=== PATIENT | female | born 1990 | race Caucasian/White ===

== ENCOUNTER → 2017-07-01 | Outpatient (CLI) | payer BC, OTHER ==
[2017-07-01 14:34] VITALS: BMI 30.4
== END | disposition home or self-care (01) ==
LOC: DBWHC3 13:49
PROVIDERS: ATTEND Obstetrics & Gynecology
DX: O24.419 Gestational diabetes mellitus in pregnancy, unspecified control (principal); Z3A.00 Weeks of gestation of pregnancy not specified
CPT/HCPCS: G0108 ×2

== ENCOUNTER 2017-09-01 07:46 | Inpatient (IN) | payer BC, OTHER ==
[2017-08-28 15:24] VITALS: BMI 27.9
[2017-09-01] MEDS ORDERED: LACTATED RINGERS 1,000 ML IV ONE (07:59)
[2017-09-01] MEDS ORDERED: CITRIC ACID-SODIUM CITRATE 15 ML CUP PO ONE (07:59)
[2017-09-01 08:10] LABS: Glucose,Whole Blood 86 mg/dL (75-99)
[2017-09-01 08:18] LABS: Basophils % (A) 0 %; Eosinophils # (A) 0.1 k/uL (0-0.7); Eosinophils % (A) 1 %; HCT 36.4 % (34.0-46.0); HGB 11.5 gm/dL (11.4-16.0); Hypochromasia Slight; Lymphocytes # (A) 1.5 k/uL (1.0-4.8); Lymphocytes % (A) 16 %; MCH 28.4 pg (25.0-35.0); MCHC 31.6 g/dL (31.0-37.0); MCV 89.9 fL (80.0-100.0); Mean Platelet Volume 9.5; Monocytes # (A) 0.4 k/uL (0-1.0); Monocytes % (A) 4 %; Neutrophils # (A) 7.2 k/uL (1.3-7.7); Neutrophils % (A) 76 %; Platelet Count 166 k/uL (150-450); RBC 4.05 m/uL (3.80-5.40); RDW 14.7 % (11.5-15.5); WBC 9.4 k/uL (3.8-10.6)
[2017-09-01] MEDS: CLINDAMYCIN 900 MG in DEXTROSE 5% IN WATER 50 ML IVPB STA ×4 (09:18→09:20)
--- NOTE | 2017-09-01 09:38 | P.HPOB ---
History of Present Illness H&P Date: 09/01/17 This is a 27-year-old white female 4 para 3003 EDC 09/08/2017 at 39 weeks gestation. Patient has a history of 3 previous sections. In addition, she is requesting permanent tubal sterilization. Fetus is been active throughout the . She denies vaginal bleeding or fluid leakage. Past medical history is significant for asthma, asymptomatic with the . Past surgical history sections in 2009, 2011, 2013. Left neck biopsy of benign pathology 1993, tonsillectomy 1995. Current medications vitamins. ALLERGIES include Bactrim to which reports a rash Ceclor and penicillin, 2 both of which she reports a rash. Family history significant for diabetes, a previous baby with a "hole in the heart", and a history of hypertension. Social history patient is not , father of the baby is involved in the . She denies alcohol tobacco or drug use. history is significant for blood type A positive, rubella status immune. Pap smear, gonorrhea and chlamydia cultures, urine culture, rubella status, hepatitis B surface antigen, HIV testing all negative. One-hour Glucola 147, 3 hour GTT within normal limits. On exam this is a pleasant female, 5 foot and a half inches, 184 pounds, vital signs are stable with admission blood pressure 120/64. Patient is afebrile. The general physical exam is within normal limits. heart rate is consistent with reactive NST. Abdomen is obviously gravid, fundal height 38-39 cm, is vertex to Jv's maneuvers. Extremities reveal no edema. Chest scar in all bush. Impression: 39 week intrauterine , 3 previous sections here for repeat , requesting permanent tubal sterilization. Plan: Prophylactic antibiotics are ordered. We will proceed with repeat low transverse section and tubal ligation. All risks benefits and alternatives of this plan have been thoroughly reviewed, and all patient's questions answered. Review of Systems Negative except as in HPI Past Medical History Past Medical History: No Reported History, Asthma History of Any Multi-Drug Resistant Organisms: None Reported Past Surgical History: Section, Tonsillectomy Additional Past Surgical History / Comment(s): x3 Past Anesthesia/Blood Transfusion Reactions: No Reported Reaction Past Psychological History: No Psychological Hx Reported Smoking Status: Never smoker Past Alcohol Use History: None Reported Past Drug Use History: None Reported - Past Family History Mother Family Medical History: Congestive Heart Failure (CHF), Diabetes Mellitus, Deep Vein Thrombosis (DVT), Hypertension Medications and Allergies Home Medications Medication Instructions Recorded Confirmed Type No Known Home Medications [No 05/25/14 08/28/17 History Known Home Medications] Allergies Allergy/AdvReac Type Severity Reaction Status Date / Time cefaclor [From Ceclor] Allergy Rash/Hives Verified 09/01/17 07:59 Penicillins Allergy Anaphylaxis Verified 09/01/17 07:59 sulfamethoxazole Allergy Rash/Hives Verified 09/01/17 07:59 [From Bactrim] trimethoprim [From Bactrim] Allergy Rash/Hives Verified 09/01/17 07:59 Exam - Vital Signs Vital signs: Vital Signs Temp Pulse Resp BP Pulse Ox 09/01/17 08:01 97.5 F L 92 16 120/64 97 Intake and Output 08/31/17 09/01/17 09/01/17 22:59 06:59 14:59 Other: Weight 83.461 kg Patient Weight 09/02/17 06:59 Weight 83.461 kg See dictation under HPI, please. Results Result Diagrams: 09/01/17 08:05 Assessment and Plan Plan: For repeat low transverse section and tubal ligation. Time with Patient: Less than 30
[2017-09-01] MEDS ORDERED: LACTATED RINGERS 1,000 ML BAG IV ONE (09:41)
[2017-09-01] MEDS ORDERED: PHENYLEPHRINE-0.9% NACL SYG 1 MG/10 ML SYRINGE ONE (09:41)
[2017-09-01] MEDS ORDERED: MORPHINE SULFATE (PF) 0.3 MG/0.3 ML SYR ONE (09:41)
[2017-09-01] MEDS ORDERED: ONDANSETRON 4 MG/2 ML VIAL ONE (09:41)
[2017-09-01] MEDS ORDERED: NALBUPHINE 10 MG/ML AMPUL ONE (09:41)
[2017-09-01] MEDS ORDERED: OXYTOCIN 10 UNIT/ML 1 ML VIAL ONE (09:41)
[2017-09-01] MEDS ORDERED: MORPHINE SULFATE 2 MG/ML SYRINGE IVP PRN (10:07)
[2017-09-01] MEDS ORDERED: diphenhydrAMINE 50 MG/ML 1 ML VIAL IVP PRN ×2 (10:07→10:57)
[2017-09-01] MEDS ORDERED: ONDANSETRON 4 MG/2 ML VIAL IVP PRN (10:07)
[2017-09-01] MEDS ORDERED: NALOXONE 0.4 MG/ML 1 ML VIAL IV PRN (10:07)
[2017-09-01] MEDS ORDERED: Acetaminophen-Codeine 300-30mg TAB PO PRN (10:57)
[2017-09-01] MEDS ORDERED: SIMETHICONE 80 MG CHEWABLE PO PRN (10:57)
[2017-09-01] MEDS ORDERED: METOCLOPRAMIDE 5 MG/ML 2 ML VIAL IVP PRN (10:57)
[2017-09-01] MEDS ORDERED: ZOLPIDEM 5 MG TAB PO PRN (10:57)
--- NOTE | 2017-09-01 10:57 | P.OP ---
Date of Procedure: 09/01/17 Preoperative Diagnosis: 3 previous C/S, undesired fertility, 39 wks Postoperative Diagnosis: Liveborn female Procedure(s) Performed: Repeat C/S, with TL Anesthesia: spinal Surgeon: Mary Mayes Baby Formula Worker #1: Sammie Wheatley Estimated Blood Loss (ml): 500 IV fluids (ml): 1,000 Urine output (ml): 100 Pathology: other (placenta) Condition: stable Disposition: PACU Operative Findings: see above Description of Procedure: Is brought to the operating suite. Spinal is placed without difficulty. Patient is positioned in the dorsal supine position with left lateral uterine displacement. Abdullahi catheter placed to direct drainage. The appropriate timeout was performed. The abdomen is prepped and draped in The usual sterile fashion. The analgesia is checked and noted to be adequate. A repeat low transverse skin incision is made in this is carried down through the subcutaneous tissue to the fascia. Fascia is isolated, scored, and extended bilaterally with curved Garcia scissors. Peritoneum is next identified and incised, there is no bowel or bladder involvement. The bladder blade is placed over the dome of the bladder and at all times the bladder is Well from the operative field to avoid bladder and/or ureteral injury. A low transverse uterine incision is made in this is carried down through the myometrium which is quite attenuated and thin. Artificial amniorrhexis reveals clear fluid. The uterine incision is extended with blunt dissection. The infant's head is delivered occiput anterior. There is no nuchal cord noted. The oropharynx, nasopharynx, and external nares are all bulb suctioned on the abdomen. The patient is officially delivered of a liveborn female infant at 1003 hrs. The umbilical cord is doubly clamped and ligated, she is handed to waiting nurses for evaluation where scores of 9 and 9 at one and 5 minutes respectively are given. weight 3590 g, or 7 lbs. 15 oz. The placenta is delivered manually, it is inspected and noted to be intact with trivascular cord at 1003. Uterus is Massaged and swept clean with a sterile sponge to avoid any retained products of conception. It is externalized. Oxytocin is given. The uterus is closed in a single full-thickness stitch of 0 Vicryl, in a running locking manner. Excellent hemostasis is noted. Patient's decision is confirmed to proceed with tubal ligation. Filshie clips are used in the isthmic portion of the tubes bilaterally, with care to traverse the entire diameter of the tubes into the mesal salpinx. Bilateral ovaries are inspected and noted to be normal. Abdomen is suctioned with suction on guard. Uterus is gently placed back into the abdominal cavity. Bilateral gutters are inspected and cleaned. Peritoneum is allowed to close by secondary intention. Fascia is closed in a running stitch of 0 Vicryl with over ligation in the midline. Subcutaneous tissue is irrigated, noted to be clean and dry. It is reapproximated with 3-0 Vicryl in a running stitch. 4-0 undyed Monocryl issues for final skin closure subcuticularly. Steri-Strips and Mastisol are applied to the wound. Uterus is massaged for a small amount of blood. Abdullahi is noted to be draining clear urine. Total estimated blood loss 500 mL, fluid replacement 1000 mL, urine output 100 mL's. All sponge needle and enhancement counts are correct at the end of the procedure. Patient is brought back to the recovery room in very good condition with stable vital signs including blood pressure 105/50, pulse 84.
[2017-09-01] MEDS: LACTATED RINGERS 1,000 ML IV SCH ×2 (13:08→22:37)
[2017-09-01 16:10] LABS: Hemoglobin A1C 5.6 % (4.0-6.0)
[2017-09-01] MEDS: IBUPROFEN 600 MG TAB PO PRN (20:44)
[2017-09-02] MEDS: LACTATED RINGERS 1,000 ML IV SCH (05:57)
[2017-09-02 07:16] LABS: Basophils % (A) 0 %; Eosinophils % (A) 0 %; HCT 32.3 % (34.0-46.0); HGB 10.2 gm/dL (11.4-16.0); Hypochromasia Slight; Lymphocytes # (A) 1.7 k/uL (1.0-4.8); Lymphocytes % (A) 22 %; MCH 28.3 pg (25.0-35.0); MCHC 31.7 g/dL (31.0-37.0); MCV 89.4 fL (80.0-100.0); Mean Platelet Volume 9.2; Monocytes # (A) 0.4 k/uL (0-1.0); Monocytes % (A) 5 %; Neutrophils # (A) 5.7 k/uL (1.3-7.7); Neutrophils % (A) 71 %; Platelet Count 164 k/uL (150-450); RBC 3.61 m/uL (3.80-5.40); RDW 14.8 % (11.5-15.5)
--- NOTE | 2017-09-02 07:58 | P.PN ---
Subjective Progress Note Date: 09/02/17 Principal diagnosis: Postoperative day #1 Objective - Vital Signs Vital signs: Vital Signs Temp 98.6 F 09/02/17 04:00 Pulse 80 09/02/17 04:00 Resp 16 09/02/17 05:00 BP 99/60 09/02/17 04:00 Pulse Ox 97 09/02/17 04:00 Intake & Output 09/01/17 09/02/17 09/02/17 18:59 06:59 18:59 Output Total 400 900 Balance -400 -900 Weight 83.461 kg Output: Urine 400 900 Uretheral (Abdullahi) 400 Other: # Voids 1 - Constitutional General appearance: Present: average body habitus, cooperative - EENT Eyes: Present: poor dentition ENT: Present: hearing grossly normal - Neck Neck: Present: normal ROM Thyroid: bilateral: normal size - Respiratory Respiratory: bilateral: CTA - Cardiovascular Rhythm: regular - Gastrointestinal Gastrointestinal Comment(s): Incision clean and dry, intact, Steri-Strips applied. General gastrointestinal: Present: normal bowel sounds - Integumentary Integumentary: Present: normal - Neurologic Neurologic: Present: CNII-XII intact - Musculoskeletal Musculoskeletal: Present: gait normal, strength equal bilaterally - Psychiatric Psychiatric: Present: A&O x's 3, appropriate affect, intact judgment & insight - Labs CBC & Chem 7: 09/02/17 06:50 Labs: Abnormal Lab Results - Last 24 Hours (Table) 09/02/17 Range/Units 06:50 RBC 3.61 L (3.80-5.40) m/uL Hgb 10.2 L (11.4-16.0) gm/dL Hct 32.3 L (34.0-46.0) % Assessment and Plan Plan: Advance diet and activity. Likely discharge home tomorrow Time with Patient: Less than 30
--- NOTE | 2017-09-02 08:20 | P.PN ---
Progress Note - Text Date:09/02 Time:720 Patient is status post . Patient seen this morning with VAS score of 4. c/o of pruritus, c/o nausea/vomiting, comfortable and doing well today.
[2017-09-02] MEDS: IBUPROFEN 600 MG TAB PO PRN (17:14)
[2017-09-02] MEDS: SENNOSIDES-DOCUSATE SODIUM 1 EACH TAB PO SCH (20:30)
[2017-09-02] MEDS ORDERED: SENNOSIDES 8.6 MG TAB PO SCH (21:00)
[2017-09-03] MEDS: IBUPROFEN 600 MG TAB PO PRN (01:10)
--- NOTE | 2017-09-03 07:01 | P.DS ---
Providers Date of admission: 09/01/17 07:46 Expected date of discharge: 09/03/17 Attending physician: Mary Mayes Primary care physician: Stated None Hospital Course: This is a 27-year-old white female 4 para 3003 EDC 09/08/2017 at 39 weeks gestation. Patient has a history of 3 previous sections, is requesting and tubal ligation for permanent sterilization. Her is remarkable for gestational diabetes. Please see my admitting history and physical for details. Patient underwent a repeat low transverse section with tubal ligation and gave to a liveborn female infant with scores of 9 and 9 at one and 5 minutes respectively. weighed 7 lbs. 15 oz. or 3590 g. Surgery was unremarkable, Filshie clips were used on the tubes. Please see my dictated operative note for details. This morning the patient is doing well. She is voiding, ambulating, passing flatus without difficulty. Vital signs are stable and she is afebrile. Incision is clean and dry, intact with Steri-Strips applied. Extremities are negative for edema. Chest is clear in all bush. Zearing is doing well. Patient is judged to be in good condition for discharge home today. She is being discharged home with instructions to follow-up with me in the office in 2 weeks. I have reminded her no intercourse, tampons or douching. She will use [id number] ibuprofen products as needed for pain, 200 mg pills, 3 every 6 hours as needed. I've asked her to call me with any redness or drainage of the incision, with any pain not alleviated by ibuprofen, with any issues with breasts extremities or indeed with any concerns. will follow-up in the office with coal pulverizer operator as recommended. No driving Patient Condition at Discharge: Good Plan - Discharge Summary Discharge Rx Participant: Yes New Discharge Prescriptions: No Action No Known Home Medications [No Known Home Medications] Discharge Medication List No Known Home Medications [No Known Home Medications] 05/25/14 [History] Follow up Appointment(s)/Referral(s): Mary Mayes MD [STAFF PHYSICIAN] - 2 Weeks Discharge Disposition: HOME SELF-CARE
[2017-09-03] MEDS: SENNOSIDES-DOCUSATE SODIUM 1 EACH TAB PO SCH (08:40)
[2017-09-03 09:24] VITALS: BP 127/64; PULSE 94; RESP 20; TEMP 98.1
== END 2017-09-03 14:10 | disposition home or self-care (01) | DRG 766 ==
LOC: 4FBP 07:46
PROVIDERS: ADMIT Obstetrics & Gynecology; ATTEND Obstetrics & Gynecology
PROC: 0UB70ZZ Excision of Bilateral Fallopian Tubes, Open Approach (ICD-10-PCS; principal; 2017-09-01 10:00)
PROC: 10D00Z1 Extraction of Products of Conception, Low, Open Approach (ICD-10-PCS; principal; 2017-09-01 10:00)
DX: O34.211 Maternal care for low transverse scar from previous cesarean delivery (principal); O24.429 Gestational diabetes mellitus in childbirth, unspecified control; L29.9 Pruritus, unspecified; Z37.0 Single live birth; Z30.2 Encounter for sterilization; Z3A.39 39 weeks gestation of pregnancy; Z82.49 Family history of ischemic heart disease and other diseases of the circulatory system; Z88.0 Allergy status to penicillin
CPT/HCPCS: 83036; 85025; 86850; 86900; 86901; 88307

== ENCOUNTER → 2020-08-25 | Outpatient (CLI) | payer BC, OTHER ==
--- NOTE | 2020-08-25 12:14 | XR ---
EXAMINATION TYPE: XR knee complete LT DATE OF EXAM: 08/25/2020 COMPARISON: None HISTORY: Left knee pain TECHNIQUE: Three-view left knee FINDINGS: Joint space is preserved. No joint effusion is evident. No acute fracture or dislocation is evident. Follow-up study can be performed 7-10 days from acute trauma for continued pain. IMPRESSION: 1. Normal three-view left knee
== END | disposition home or self-care (01) ==
LOC: RADXRMAIN 09:41
PROVIDERS: ATTEND Family Medicine
DX: M25.562 Pain in left knee (principal)

== ENCOUNTER → 2024-03-04 | Outpatient (CLI) | payer OTHER ==
--- NOTE | 2024-03-04 10:41 | CT ---
EXAMINATION TYPE: CT foot RT wo con, CT foot LT wo con CT DLP: 263 mGycm, Automated exposure control for dose reduction was used. DATE OF EXAM: 03/04/2024 10:16 AM COMPARISON: None CLINICAL INDICATION:Female, 33 years old with history of M72.2 PLANTAR FASCIAL FIBROMATOSIS; PHH, Marianela ntar fascial fibromatosis, Pain in bilateral feet. TECHNIQUE: Axial images were obtained of the both feet without the use of IV contrast. Additional co avila and sagittal reformatted images and soft tissue and bone window were obtained for review. 3-D r econstruction was created on a separate workstation. FINDINGS: There is no evidence of fracture, subluxation, or dislocation. Sclerotic focus within the r ight talus and left calcaneus and cuboid. Additional one identified within the posterior aspect of th e left distal tibia. These are consistent with benign bone islands. Bilateral posterior and plantar c alcaneal aopo-ap-gebncfgk sized enthesophytes demonstrated. No osseous erosions. The ankle joint is i ntact. Both plantar fascia appear grossly unremarkable within limits of a CT exam. No significant sof t tissue swelling or joint effusion is identified. No focal muscular atrophy or edema is identified. No radiopaque foreign body identified. IMPRESSION: 1. No acute fracture or dislocation. If there is continued clinical concern, consider MRI for further evaluation. 2. Bilateral [id number] sized posterior and plantar calcaneal enthesophytes.
== END | disposition home or self-care (01) ==
LOC: RADCTMAIN 09:18
PROVIDERS: ATTEND Family Medicine
DX: M72.2 Plantar fascial fibromatosis (principal); M77.31 Calcaneal spur, right foot; M77.32 Calcaneal spur, left foot

== ENCOUNTER → 2024-04-01 | Outpatient (CLI) | payer OTHER ==
--- NOTE | 2024-05-04 13:30 | XR ---
Patient: Jody Angelo E Ordering Physician: Unknown, Unknown ID: [id number] Phone, Pager: Phone: N/A Pager: N/A : [phone] Age/Gender: 33Y, F Primary Location: N/A Procedure: XR knee complete b ilateral Study Date: 04/01/2024 9:10:00 AM EXAMINATION TYPE: XR knee complete bilateral DATE OF EXAM: 04/10/2024 1:07 PM CLINICAL INDICATION: Bilateral knee pain COMPARISON: 08/25/2020. TECHNIQUE: XR knee complete bilateral; examined in Frontal, lateral and oblique projections. FINDINGS: No evidence of any acute osseous pathology, soft tissue swelling, or joint effusion is no adryan. Tricompartmental osteophyte formation involving the femoral condyles, tibial plateau and patella . Mild joint space narrowing. IMPRESSION: 1. No acute osseous pathology. 2. Mild tricompartmental osteoarthritic changes.
== END | disposition home or self-care (01) ==
LOC: RADXRMAIN 08:57
PROVIDERS: ATTEND Family Medicine
DX: M17.0 Bilateral primary osteoarthritis of knee (principal)